=== PATIENT | female | born 1935 | race Caucasian/White ===

== ENCOUNTER 2017-08-16 14:58 | Outpatient (CLI) | payer MEDICARE, BC | END 2017-08-16 14:59 | disposition home or self-care (01) | LOC: BICMAMMO 14:58 | PROVIDERS: ATTEND Internal Medicine | DX: Z12.31 Encounter for screening mammogram for malignant neoplasm of breast (principal); Z85.3 Personal history of malignant neoplasm of breast | CPT/HCPCS: 77063; 77067 ==

== ENCOUNTER 2017-08-22 07:56 | Outpatient (CLI) | payer MEDICARE, BC ==
[2017-08-22] MEDS ORDERED: ISOVUE-370 76%-LOCM 1 ML ONE (12:38)
== END 2017-08-22 07:57 | disposition home or self-care (01) ==
LOC: BICCT 07:56
PROVIDERS: ATTEND Internal Medicine
DX: R07.9 Chest pain, unspecified (principal); I25.10 Atherosclerotic heart disease of native coronary artery without angina pectoris
CPT/HCPCS: 75574; 82565

== ENCOUNTER 2018-04-10 13:36 | Outpatient (CLI) | payer MEDICARE, BC ==
--- NOTE | 2018-04-10 14:21 | RAD ---
LEFT KNEE RADIOGRAPHS THREE VIEWS: Date: 04-10-18 Provided Clinical History: Left knee pain. FINDINGS: Comparison is made with the study dated 03-30-16. Post-operative changes of the left total knee arthroplasty are re-demonstrated, without evidence for hardware loosening or migration. Osseous density at the lateral margin of the tibial tray and at the cranial aspect of the patellofemoral joint are stable with respect to prior. No evidence for fracture . No lytic or blastic lesions are radiographically apparent. IMPRESSION: Stable radiographic appearance of the left knee status post left total knee arthroplasty. POS: [facility]
== END 2018-04-10 13:37 | disposition home or self-care (01) ==
LOC: BICRAD 13:36
PROVIDERS: ATTEND Orthopaedic Surgery
DX: M25.562 Pain in left knee (principal); Z96.652 Presence of left artificial knee joint

== ENCOUNTER 2018-04-28 12:21 | Outpatient (CLI) | payer MEDICARE, BC ==
--- NOTE | 2018-04-28 14:45 | RAD ---
CHEST TWO VIEWS: HISTORY: Right-sided chest pain. FINDINGS: Heart size is within normal limits. The aorta is tortuous with atherosclerotic change. The lungs sh ow some chronic appearing change. The bones appear demineralized. Slight scoliotic deformity to the spine. IMPRESSION: 1. Chronic appearing lung change. 2. No acute process. POS: [facility]
== END 2018-04-28 12:22 | disposition home or self-care (01) ==
LOC: BICRAD 12:21
PROVIDERS: ATTEND Internal Medicine Gastroenterology
DX: R10.11 Right upper quadrant pain (principal); R11.0 Nausea; K58.9 Irritable bowel syndrome, unspecified; J98.4 Other disorders of lung
CPT/HCPCS: 71046

== ENCOUNTER 2018-05-10 08:42 | Outpatient (CLI) | payer MEDICARE, BC ==
[2018-05-10] MEDS ORDERED: Iopamidol 370 76% 100 ML VIAL ONE (09:28)
--- NOTE | 2018-05-10 10:18 | CT ---
CT ABDOMEN AND JAYDON WITH IV CONTRAST: Multiple axial tomograms were obtained through the abdomen and pelvis with IV enhancement. Oral cont rast was administered. INDICATION: Right upper quadrant abdominal pain. Surgical history of hysterectomy, cholecystectomy, and appendec del. COMPARISON: Comparison is made to CT abdomen and pelvis 06/14/2017. FINDINGS: Lung bases clear. There is a low-density lesion in the right lobe of the liver which shows peripheral nodular enhanceme nt consistent with hepatic hemangioma. This is unchanged in appearance when compared to prior study. Tiny low-density cystic lesions in the more superior right lobe of the liver appear stable and mitzi sony tiny hepatic cysts. The liver, spleen, and pancreas are unremarkable and unchanged from prior e xam. Adrenal glands unremarkable. There are 2 exophytic cysts from the posterolateral left renal cortex, stable. There are other tiny low-density foci in both kidneys which are too small to characterize but probably are cystic. These appear stable. There is a dystrophic cortical calcification inferior pole of the left kidney which a ppears stable from the prior exam. No hydronephrosis. Small bowel loops appear normal caliber. Review of colon reveals sigmoid diverticulosis. No CT evid ence of acute diverticulitis. Aorta normal caliber. No mass or adenopathy apparent. Degenerative c hanges at both hips with subchondral cystic change in the right femoral head, stable. IMPRESSION: 1. Hepatic hemangioma appears stable. 2. Numerous bilateral low-density renal lesions probably representing tiny cysts are too small to ad equately characterize but appear stable. Dystrophic cortical calcifications inferior pole left kidne y is stable. 3. Diverticulosis sigmoid colon without evidence of acute diverticulitis. I cannot exclude mural th ickening in the sigmoid and there is luminal narrowing in the lower sigmoid just above the rectosigmo id junction. Consider elective colonoscopy. 4. Otherwise, no acute finding or significant interval change apparent. POS: [facility]
== END 2018-05-10 08:43 | disposition home or self-care (01) ==
LOC: BICCT 08:42
PROVIDERS: ATTEND Internal Medicine Gastroenterology
DX: K58.9 Irritable bowel syndrome, unspecified (principal); K57.30 Diverticulosis of large intestine without perforation or abscess without bleeding; D18.09 Hemangioma of other sites
CPT/HCPCS: 74177; 82565; Q9967

== ENCOUNTER 2018-08-17 13:15 | Outpatient (CLI) | payer MEDICARE, BC ==
--- NOTE | 2018-08-17 15:17 | MMO ---
Bilateral MAMMO Bilat Screen [facility]. CLINICAL HISTORY: Patient is 82 years old and is seen for screening. The patient has no family history of breast cancer. The patient has a history of Skin cancer. 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 VIEWS: The views performed were: bilateral craniocaudal with tomosynthesis and bilateral mediolateral oblique with tomosynthesis. FILMS COMPARED: The present examination has been compared to prior imaging studies performed at [facility] on 08/08/2014, 08/11/2015, 08/12/2016 and 08/16/2017. MAMMOGRAM FINDINGS: There are scattered fibroglandular densities. There are no suspicious masses, suspicious calcifications, or new areas of architectural distortion. IMPRESSION: THERE IS NO MAMMOGRAPHIC EVIDENCE OF MALIGNANCY. A ROUTINE FOLLOW-UP MAMMOGRAM IN 1 YEAR IS RECOMMENDED. THE RESULTS OF THIS EXAM WERE SENT TO THE PATIENT. ACR BI-RADS Category 1 - Negative MAMMOGRAPHY NOTE: 1. A negative mammogram report should not delay a biopsy if a dominant of clinically suspicious mass is present. 2. Approximately 10% to 15% of breast cancers are not detected by mammography. 3. Adenosis and dense breasts may obscure an underlying neoplasm.
== END 2018-08-17 13:16 | disposition home or self-care (01) ==
LOC: BICMAMMO 13:15
PROVIDERS: ATTEND Internal Medicine
DX: Z12.31 Encounter for screening mammogram for malignant neoplasm of breast (principal); Z90.12 Acquired absence of left breast and nipple
CPT/HCPCS: 77063; 77067

== ENCOUNTER 2019-04-29 08:24 | Day surgery (SDC) | payer MEDICARE, BC ==
--- NOTE | 2019-04-29 08:55 | RAD ---
Left wrist:3 views. INDICATIONS:Injury with pain COMPARISON:None FINDINGS: There is a comminuted displaced fracture distal radius with mild impaction. Fracture lines extend to the articular surface. Deformity of the distal ulna is also seen suggesting old healed fracture although an acute fracture a t this site cannot be excluded. Carpals appear intact. Severe degenerative change at the first carpal metacarpal joint with deformity and hypertrophic change. Metacarpals appear intact. No soft tissue abnormality identified. IMPRESSION: Comminuted mildly displaced fracture of the distal radius. Deformity of the distal ulna with probable acute fracture.
[2019-04-29] MEDS ORDERED: Ropivacaine 0.5% HCl/PF (150 MG/30 ML VIAL) ONE (09:17)
[2019-04-29 09:19] LABS: #Basophils 0.1 thou/uL (0.0-0.2); #Eosinphils 0.1 thou/uL (0.0-0.7); #Lymphocytes 1.3 thou/uL (1.20-3.40); #Monocytes 0.6 thou/uL (0.11-0.59); #Neutrophils 2.9 thou/uL (1.40-6.50); %Basophils 1.2 % (0.0-1.0); %Lymphocytes 25.3 % (21.0-51.0); %Monocytes 12.1 % (0.0-10.0); %Neutrophils 59.3 % (42.0-75.0); Hemoglobin 12.2 g/dL (12.0-16.0); Mean Corpuscular HGB CONC 33.7 g/dL (32.0-36.0); Mean Corpuscular Hemoglobin 34.6 pg (27.0-31.0); Mean Platelet Volume 7.8 fL (7.4-10.4); Platelet Count 239 thou/uL (130-400); RBC Distribution Width 11.8 % (11.5-14.5); Red Blood Cell (RBC) Count 3.54 mill/uL (4.20-5.40)
[2019-04-29] MEDS ORDERED: Ondansetron ODT 4 MG TAB PO PRN (09:28)
[2019-04-29] MEDS ORDERED: TETANUS AND DIPHTHERIA TOX/PF 0.5 ML DISP.SYRIN IM ONE (09:28)
[2019-04-29] MEDS ORDERED: Dextrose 5% in Water 1,000 ML IV PRN (09:28)
[2019-04-29] MEDS ORDERED: Dextrose 50% Abboject 50 ML SYRINGE SLOW IVP PRN (09:28)
[2019-04-29] MEDS ORDERED: Morphine 2 MG/ML SYRINGE SLOW IVP PRN (09:28)
[2019-04-29] MEDS ORDERED: Ondansetron PF 4 MG/2 ML Vial IVP PRN (09:28)
[2019-04-29] MEDS ORDERED: hydrALAZINE 20 MG/ML VIAL SLOW IVP PRN (09:28)
[2019-04-29] MEDS ORDERED: Sodium Chloride 0.9% 1,000 ML IV SCH (09:30)
[2019-04-29 09:32] LABS: ALT (SGPT) 9 U/L (8-55); AST (SGOT) 13 U/L (5-34); Albumin 4.1 g/dL (3.4-4.8); Alkaline Phosphatase 100 U/L (40-110); Anion Gap 10 mmol/L (10-20); BUN (Urea Nitrogen) 18 mg/dL (9.8-20.1); Bilirubin, Total 0.4 mg/dL (0.2-1.2); Calc. Creatinine Clearance 0 mL/min (70-130); Calcium 8.9 mg/dL (7.8-10.44); Carbon Dioxide 28 mmol/L (23-31); Chloride 105 mmol/L (98-107); Estimated GFR-MDRD 76; Globulin 2.2 g/dL (2.4-3.5); Glucose 105 mg/dL (83-110); Potassium 4.3 mmol/L (3.5-5.1); Protein, Total 6.3 g/dL (6.0-8.3); Sodium 139 mmol/L (136-145)
[2019-04-29] MEDS ORDERED: traMADol HCl 50 MG TAB PO PRN ×2 (09:35)
[2019-04-29] MEDS ORDERED: Morphine 4 MG/ML VIAL ONE (09:40)
[2019-04-29] MEDS ORDERED: Ondansetron PF 4 MG/2 ML Vial ONE (09:40)
[2019-04-29] MEDS ORDERED: Lidocaine 1% (PF) 30 ML VIAL ONE (09:40)
[2019-04-29] MEDS ORDERED: Bupivacaine 0.5% 10 ML VIAL ONE (09:42)
[2019-04-29] MEDS ORDERED: Ibuprofen 200 MG TAB PO PRN (09:42)
--- NOTE | 2019-04-29 09:48 | RAD ---
PORTABLE CHEST: Date: 04/29/2019 INDICATION: Preop. Comparison made to a 2 view chest exam of 04/28/18. FINDINGS/IMPRESSION: No evidence of infiltrate or vascular congestion. There are two nodular densities seen in the right mid lung field measuring in the 8-10 mm range. Thes e densities appear new when compared to the prior exam of 04/28/2018. Recommend follow-up upright PA and lateral views. CT is recommended if these nodular densities persist. CODE T. CODE LN. POS: [facility]
[2019-04-29] MEDS ORDERED: Lidocaine 1% PF 5 ML VIAL ONE ×2 (11:08→13:06)
[2019-04-29] MEDS ORDERED: PROPOFOL 200 MG/20 ML VIAL ONE (11:08)
--- NOTE | 2019-04-29 11:23 | RAD ---
Left wrist:2 views INDICATIONS:Postreduction COMPARISON:None FINDINGS: Cast material is in place. There is been reduction of the distal radial fracture. Comminuted fracture with angulation and mild displacement remains.
[2019-04-29 12:07] LABS: Phosphorus 3.7 mg/dL (2.3-4.7)
[2019-04-29] MEDS ORDERED: Fentanyl 100 MCG/2 ML VIAL ONE (13:06)
[2019-04-29] MEDS ORDERED: Midazolam HCl 2 mg/2 ml Vial ONE (13:06)
[2019-04-29] MEDS ORDERED: Levofloxacin 500 mg/D5W 100 ml Premix Bag ONE (13:15)
[2019-04-29] MEDS ORDERED: PROPOFOL 20 ML ONE (13:34)
[2019-04-29] MEDS ORDERED: Acetaminophen 500 MG TAB PO SCH (14:00)
--- NOTE | 2019-04-29 14:07 | HP ---
PRIMARY CARE PHYSICIAN: Mars Dumont MD REQUESTING PHYSICIAN: Sandeep Anderson MD CONSULTS: Orthopedic Surgery, Jayden Flores MD ATTENDING PHYSICIAN: Cole Correa MD CHIEF COMPLAINT: Fall and left wrist pain. HISTORY OF PRESENT ILLNESS: This is an 83-year-old female, who presented to the emergency room after she tripped on a curb and fell last night as she was walking to a restaurant. The patient reached out with her left arm to catch her fall and reported immediate pain and deformity to her left wrist. The patient denies hitting her head or any other injuries. The patient denies any recent illness or fever or chills. The patient denies feeling weak, dizzy, shortness of breath, or having any chest pains prior to falling. The patient last had anything to eat or drink at 7 p.m. last night. The patient was found to have a left mildly displaced wrist fracture and [facility]uma Services was contacted to admit the patient. Emergency room did do a digital block and reduced her left wrist. The reduction was successful and a splint was applied. The patient was given morphine for pain and the patient's heart rate has dropped in the 40s, but resolved. PAST MEDICAL HISTORY: Hypertension, hyperlipidemia, high cholesterol, and anxiety. PAST SURGICAL HISTORY: Cataracts, appendectomy, cholecystectomy, hysterectomy, mastectomy left, and tonsillectomy. ALLERGIES: PENICILLIN. CURRENT MEDICATIONS: 1. Amlodipine 10 mg daily. 2. Carvedilol 3.125 mg two times a day. 3. Lisinopril 5 mg p.o. daily. 4. Rosuvastatin 20 mg daily. 5. Lorazepam 1 mg p.r.n. SOCIAL HISTORY: Denies a history of smoking. Denies alcohol use or illicit drug use. The patient lives at home with her , who is a retired urologist. REVIEW OF SYSTEMS: A 10-point review of systems is negative unless otherwise indicated in the above HPI. PHYSICAL EXAMINATION: VITAL SIGNS: Blood pressure 176/80, pulse 57, respirations 16, SpO2 of 97% on room air, and temperature 97.7. GENERAL: Well-appearing female, lying in hospital bed, moderate distress due to left wrist pain. HEENT: Head is atraumatic and normocephalic. Oropharynx normal. Mucous membranes moist. Extraocular muscles intact. NECK: No cervical spine tenderness. Normal range of motion. Trachea midline. RESPIRATORY: Equal chest rise and fall. Bilateral breath sounds clear. No wheezing, rales, or rhonchi. CARDIOVASCULAR: Regular rate. Regular rhythm. No murmur. ABDOMEN: Soft, nontender, and nondistended. EXTREMITIES: Left upper extremity with deformity and ecchymosis. Radial pulse 2+ . Normal movement and sensation to the fingers. Right upper extremity unremarkable. Bilateral lower extremities, 2+ distal pulses bilateral, abrasions and ecchymosis to both knees, normal range of motion to both lower extremities. The patient is able to ambulate. PELVIS: Stable. NEUROLOGIC: GCS 15. No focal deficits. LABORATORY DATA: WBC 5.0, RBC 3.54, hemoglobin 12.2, hematocrit 36.2, and platelets 239. Sodium 139, potassium 4.3, chloride 105, BUN 18, creatinine 0.73, estimated GFR 76, glucose 105, calcium 8.9, AST 13, ALT 9, alkaline phosphatase 100, albumin 4.1, and globulin 2.2. Troponin I pending. DIAGNOSTICS: 1. A 12-lead EKG, sinus keely, complete left bundle branch block, ST segments and T-waves are normal. Left axis deviation. 2. Wrist x-ray left, impression, comminuted mildly displaced fracture of the distal radius. Deformity of the distal ulna with probable acute fracture. 3. Chest x-ray, impression, no evidence of infiltrate or vascular congestion. There are two nodular densities seen in the right mid lung field measuring 8 to 10 mm in range. These densities appear new when compared to prior exam on 04/28/2018. Recommended followup upright PA and lateral views. CT is recommended if these nodular densities persist. IMPRESSION: 1. Status post ground level fall with delayed presentation. Left displaced wrist fracture, reduced in the ER and splinted. 2. Bradycardia likely due to administration of morphine. 3. Acute traumatic pain. 4. Incidental finding, two nodular densities in the right mid lung, measuring 8 to 10 mm. 5. History of hypertension. 6. Hyperlipidemia. PLAN: The patient will be n.p.o. Dr. Flores plans to take the patient to the OR later today for repair of her left wrist. We will place the patient on telemetry for continuous cardiac monitoring as she had a bradycardic episode with morphine. We will obtain serial troponins. We will attempt to find a previous EKG to compare. We will place the patient on a pain regimen. We will have PT and OT work with the patient postop. The chest x-ray findings were discussed with the patient and the patient's and plan to follow up with Dr. Dumont outpatient. We will hold the patient's carvedilol as long as her heart rate is below 60. The plan was discussed with the attending, who agrees. Patient wished to go home after repair of her left wrist. Patient was not admitted, she was released by Dr. Flores postop. Job ID: [id number] MTDD
--- NOTE | 2019-04-29 15:10 | RAD ---
LEFT WRIST 3 FLUOROSCOPIC VIEWS: Date: 04/29/2019 INDICATION: Intraoperative imaging, open reduction and internal fixation left wrist. FINDINGS/IMPRESSION: Films show plate and screws transfixing the distal radius. POS: [facility]
--- NOTE | 2019-04-29 18:11 | OP ---
DATE OF PROCEDURE: 04/29/2019 PREOPERATIVE DIAGNOSIS: Intra-articular left volar distal radius fracture, greater than three fragments. POSTOPERATIVE DIAGNOSIS: Intra-articular left volar distal radius fracture, greater than three fragments. PROCEDURES PERFORMED: Open reduction and internal fixation of left distal radius. ANESTHESIA: General. CLERICAL STOCK INSPECTOR: Surjit Miguel PA-C TOURNIQUET TIME: Approximately 45 minutes at 250 mmHg. ESTIMATED BLOOD LOSS: 10 mL. IMPLANTS: Synthes 2.4 mm variable angle LCP volar distal radial plate two column. COMPLICATIONS: None. DRAINS: None. SPECIMEN: None. OUTCOME: Satisfactory. INDICATIONS FOR PROCEDURE: The patient is a pleasant 83-year-old lady status post ground level fall yesterday evening sustaining an intra-articular distal radius fracture on the left side. After discussion with the patient and her including risks and benefits, we decided to proceed with open reduction and internal fixation of the fracture. Informed consent has been obtained. I believe all questions have been answered. DESCRIPTION OF PROCEDURE: The patient was brought to the operating room and a time-out performed followed by induction of general anesthesia. Next, limb was exsanguinated with Esmarch bandage, tourniquet inflated to 250 mmHg. Next, a volar radial skin incision was made after skin was sharply incised. Dissection was carried down bluntly just to the radial side of the flexor carpi radialis exploiting this interval. The digital flexure was reflected in the midline revealing the underlying pronator quadratus. Pronator quadratus was released sharply off the radial border of the distal radius and reflected to the midline. At this point, the fracture could be easily visualized. The fracture hematoma was lavaged from the wound and the fracture reduced manually and held in place with a 2-column plate on the volar cortex. A single 2.7 mm cortical screw was then placed in the longitudinal limb of the plate with AP and lateral C-arm images showing acceptable alignment of the plate with the plate just starting to creep off the radius proximally, but felt to be acceptably aligned distally as such. A total of 4 locking screws were placed in the horizontal limb of the plate capturing the intra-articular fracture. This resulted in rastafarian of radial inclination, volar tilt, and radial length. Two additional 2.7 mm screws were placed in the longitudinal limb of the plate and then final AP and lateral C-arm images were obtained. The wound was then irrigated with bulb syringe and then closed in layers with 0 Vicryl deep followed by 2-0 Vicryl and nylon for the skin. Xeroform gauze and a fiberglass splint were applied to the wrist and then, the patient was transferred to recovery room in stable condition. There were no complications. She tolerated the procedure well. The tourniquet was let down at the completion of dressing. Job ID: [id number]
[2019-04-29] MEDS ORDERED: Senokot S 8.6-50 MG TAB PO SCH (21:00)
[2019-04-30] MEDS ORDERED: Polyethylene Glycol 3350 17 GM Packet PO SCH (09:00)
== END 2019-04-29 16:05 | disposition home or self-care (01) ==
LOC: EDBD 08:24 → ERS 08:24 → SDC 12:49
PROVIDERS: ATTEND Orthopaedic Surgery
PROC: 0PSJ04Z Reposition Left Radius with Internal Fixation Device, Open Approach (ICD-10-PCS; principal; 2019-04-29)
DX: S52.572A Other intraarticular fracture of lower end of left radius, initial encounter for closed fracture (principal); G89.11 Acute pain due to trauma; I10 Essential (primary) hypertension; E78.5 Hyperlipidemia, unspecified; E78.00 Pure hypercholesterolemia, unspecified; F41.9 Anxiety disorder, unspecified; R91.8 Other nonspecific abnormal finding of lung field; Z79.899 Other long term (current) drug therapy; Z88.0 Allergy status to penicillin; W18.30XA Fall on same level, unspecified, initial encounter
CPT/HCPCS: 25609; 71045; 73100; 73110; 76000; 80053; 83735; 84100; 84484; 85025; 93005; C1713 ×2; 36415; J0500; J0690; J1956; J2001; J2250; J2270; J2405; J2704; J2795; J3010; J3490

== ENCOUNTER 2019-08-20 10:04 | Outpatient (CLI) | payer MEDICARE, BC ==
--- NOTE | 2019-08-20 10:21 | MMO ---
Bilateral MAMMO Bilat Screen [facility]. CLINICAL HISTORY: Patient is 83 years old and is seen for screening. The patient has no family history of breast cancer. The patient has a history of Skin cancer. 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 VIEWS: The views performed were: bilateral craniocaudal with tomosynthesis and bilateral mediolateral oblique with tomosynthesis. FILMS COMPARED: The present examination has been compared to prior imaging studies performed at [facility] on 08/11/2015, 08/12/2016, 08/16/2017 and 08/17/2018. This study has been interpreted with the assistance of computer-aided detection. MAMMOGRAM FINDINGS: There are scattered fibroglandular densities. There are no suspicious masses, suspicious calcifications, or new areas of architectural distortion. IMPRESSION: THERE IS NO MAMMOGRAPHIC EVIDENCE OF MALIGNANCY. A ROUTINE FOLLOW-UP MAMMOGRAM IN 1 YEAR IS RECOMMENDED. THE RESULTS OF THIS EXAM WERE SENT TO THE PATIENT. ACR BI-RADS Category 1 - Negative MAMMOGRAPHY NOTE: 1. A negative mammogram report should not delay a biopsy if a dominant of clinically suspicious mass is present. 2. Approximately 10% to 15% of breast cancers are not detected by mammography. 3. Adenosis and dense breasts may obscure an underlying neoplasm. Reported by: BIJAN JEFFRIES MD Electonically Signed: [id number]
== END 2019-08-20 10:05 | disposition home or self-care (01) ==
LOC: BICMAMMO 10:04
PROVIDERS: ATTEND Internal Medicine
DX: Z12.31 Encounter for screening mammogram for malignant neoplasm of breast (principal); Z85.828 Personal history of other malignant neoplasm of skin; Z98.890 Other specified postprocedural states
CPT/HCPCS: 77063; 77067

== ENCOUNTER 2020-08-21 13:19 | Outpatient (CLI) | payer MEDICARE, BC | END 2020-08-21 13:20 | disposition home or self-care (01) | LOC: BICMAMMO 13:19 | PROVIDERS: ATTEND Internal Medicine | DX: Z12.31 Encounter for screening mammogram for malignant neoplasm of breast (principal); Z85.3 Personal history of malignant neoplasm of breast; Z85.828 Personal history of other malignant neoplasm of skin; Z90.12 Acquired absence of left breast and nipple | CPT/HCPCS: 77063; 77067 ==

== ENCOUNTER 2021-09-02 12:47 | Outpatient (CLI) | payer MEDICARE, BC | END 2021-09-02 12:48 | disposition home or self-care (01) | LOC: BICMAMMO 12:47 | PROVIDERS: ATTEND Internal Medicine | DX: Z12.31 Encounter for screening mammogram for malignant neoplasm of breast (principal); Z90.12 Acquired absence of left breast and nipple | CPT/HCPCS: 77063; 77067 ==

== ENCOUNTER 2022-09-27 13:29 | Outpatient (CLI) | payer MEDICARE, BC | END 2022-09-27 13:30 | disposition home or self-care (01) | LOC: BICMAMMO 13:29 | PROVIDERS: ATTEND Internal Medicine | DX: Z12.31 Encounter for screening mammogram for malignant neoplasm of breast (principal); Z85.828 Personal history of other malignant neoplasm of skin; Z90.12 Acquired absence of left breast and nipple | CPT/HCPCS: 77063; 77067 ==

== ENCOUNTER 2024-10-24 14:46 | Outpatient (CLI) | payer MEDICARE, BC | END 2024-10-24 14:47 | disposition home or self-care (01) | LOC: BICMAMMO 14:46 | PROVIDERS: ATTEND Internal Medicine | DX: Z12.31 Encounter for screening mammogram for malignant neoplasm of breast (principal); Z85.3 Personal history of malignant neoplasm of breast; Z85.828 Personal history of other malignant neoplasm of skin; Z90.12 Acquired absence of left breast and nipple | CPT/HCPCS: 77063; 77067 ==